=== PATIENT | male | born 1985 | race African-American/Black ===

== ENCOUNTER 2016-06-23 15:58 | Emergency (ER) | payer MEDICAID ==
[~2016-06-23] VITALS: Ht 185.4 cm; Wt 81.6 kg
[2016-06-23 17:02] LABS: Urine RBC None Seen /hpf (0 - 3)
[2016-06-23 18:15] LABS: Urine Bilirubin Negative (Negative); Urine Blood Negative /uL (Negative); Urine Color Yellow (Yellow); Urine Glucose Normal (Normal); Urine Ketone Negative (Negative); Urine Mucus FEW (None Seen); Urine Nitrite Negative (Negative); Urine Urobilinogen Normal (Negative); Urine pH 5.5 (5.0-8.0)
[2016-06-23 22:54] VITALS: BP 133/73
== END 2016-06-23 23:01 | disposition home or self-care (01) ==
LOC: ER 16:25
DX: N39.0 Urinary tract infection, site not specified (principal); F12.10 Cannabis abuse, uncomplicated
CPT/HCPCS: 81001

== ENCOUNTER → 2017-05-03 | Emergency (ER) | payer MEDICAID | END | disposition left against medical advice (07) | LOC: ER 13:26 | DX: M54.9 Dorsalgia, unspecified (principal); Z53.21 Procedure and treatment not carried out due to patient leaving prior to being seen by health care provider ==

== ENCOUNTER 2018-09-21 11:34 | Emergency (ER) | payer MEDICAID ==
[~2018-09-21] VITALS: Ht 185.4 cm; Wt 76.7 kg
[2018-09-21 11:55] VITALS: BP 129/81
[2018-09-21 12:31] LABS: Amphetamine Screen, Urine NEGATIVE (NEGATIVE); Barbiturate Scree,Urine NEGATIVE (NEGATIVE); Cocaine Screen, Urine NEGATIVE (NEGATIVE); Opiate Scree,Urine NEGATIVE (NEGATIVE); Phencyclidine Screen, Urine NEGATIVE (NEGATIVE)
[2018-09-21 12:33] LABS: Alcohol, Urine < 3.0 mg/dL (0-5); Benzodiazephine Screen, Urine NEGATIVE (NEGATIVE); Cannabinoid Screen, Urine NEGATIVE (NEGATIVE)
== END 2018-09-21 13:47 | disposition home or self-care (01) ==
LOC: ER 11:36
DX: Z02.83 Encounter for blood-alcohol and blood-drug test (principal); F17.210 Nicotine dependence, cigarettes, uncomplicated; F12.10 Cannabis abuse, uncomplicated
CPT/HCPCS: 80307